=== PATIENT | male | born 1940 | race African-American/Black ===

== ENCOUNTER 2020-01-21 14:24 | Inpatient (IN) ==
[2020-01-21 15:43] LABS: Basophils % 0.5 % (0.0-0.8); Eosinophils # 0.2 10*3/uL (0.0-0.87); Eosinophils % 4.1 % (0.00-10.9); Hematocrit 32.5 VOL% (42.0-52.0); Hemoglobin 9.1 GM/DL (14.0-18.0); Immature Granulocytes % 0.5 %; Immature Granulocytes Absolute 0.03 #; Lymphocytes # 1.6 10*3/uL (1.4-4.0); Lymphocytes % 26.8 % (21.2-54.2); Mean Corpuscular Volume 75.8 FL (87-102); Mean Platelet Volume 9.7 FL (9.6-12.0); Monocytes % 7.5 % (1.7-12.7); Neutrophils % 60.6 % (38.7-73.9); Platelet Count 240 T/CUMM (130-400); Red Blood Count 4.29 MC/CUMM (3.8-5.5); Red Cell Distribution Width 15.5 % (9.3-17.3); White Blood Count 5.9 T/CUMM (4-12)
[2020-01-21 15:45] LABS: Apearance,Urine CLOUDY (Clear); Bacteria,Urine Many /HPF (Few); Bilirubin,Urine Negative (Negative); Blood, Urine Small mg/dL (Negative); Glucose,Urine (UA) 50 mg/dL (Negative); Ketones,Urine Negative (Negative); Mucus,Urine Occasional /LPF (Occasional); Nitrite,Urine Negative (Negative); Protein,Urine 30 MG/DL; RBC,Urine 17 /HPF (0-4); Urine Color Yellow (Yellow); Urine Specific Gravity 1.008 (1.001-1.035); Urine Urobilinogen < 2.0 EU/DL (0.2-1.0); WBC,Urine 355 /HPF (0-6)
[2020-01-21 16:04] LABS: Alanine Aminotransferase 13 U/L (16-61); Albumin 2.6 G/DL (3.4-5.0); Alkaline Phosphatase 165 U/L (45-117); Aspartate Amino Transferase 10 U/L (0-37); Bilirubin,Total < 0.39 MG/DL (0.2-1.0); Blood Urea Nitrogen 33 MG/DL (7-18); Calcium 9.1 MG/DL (8.5-10.1); Estimated Glom Filtration Rate 52 ML/MIN; Glucose 222 MG/DL (74-106); Osmolality,Calculated 286.8 MOS/KG (273-304); Total Protein 7.4 G/DL (6.4-8.3)
[2020-01-21] MEDS ORDERED: GLUCAGON 1 MG VIAL IM PRN (18:04)
[2020-01-21] MEDS ORDERED: DEXTROSE 10% 250 ML BAG IV PRN (18:04)
[2020-01-21] MEDS ORDERED: ONDANSETRON 4 MG/2 ML VIAL IV PRN (18:14)
[2020-01-21] MEDS ORDERED: ACETAMINOPHEN 325 MG TABLET PO PRN (18:14)
[2020-01-21] MEDS ORDERED: FUROSEMIDE 40 MG/4 ML VIAL IV STA (18:38)
[2020-01-21 18:39] LABS: Hypochromasia Slight; Microcytosis 1+; Platelet Estimate Normal
[2020-01-21 18:40] LABS: Anisocytosis 1+; Polychromasia Slight
[2020-01-21] MEDS ORDERED: cefTRIAXone 1,000 MG in SYRINGE 1 EACH IV SCH (21:00)
[2020-01-21] MEDS: ENOXAPARIN 40 MG/0.4 ML SYRINGE SUBCUT SCH (21:50)
[2020-01-21] MEDS: INSULIN LISPRO 100 UNIT/ML SUBCUT SCH (22:08)
[2020-01-22 06:30] LABS: Basophils % 0.5 % (0.0-0.8); Eosinophils # 0.2 10*3/uL (0.0-0.87); Eosinophils % 3.6 % (0.00-10.9); Hematocrit 29.9 VOL% (42.0-52.0); Hemoglobin 8.5 GM/DL (14.0-18.0); Immature Granulocytes % 0.3 %; Immature Granulocytes Absolute 0.02 #; Lymphocytes # 1.8 10*3/uL (1.4-4.0); Lymphocytes % 28.6 % (21.2-54.2); Mean Corpuscular HGB Conc 28.4 GM/DL (32-36); Mean Corpuscular Volume 74.8 FL (87-102); Mean Platelet Volume 10.9 FL (9.6-12.0); Monocytes % 7.9 % (1.7-12.7); Neutrophils % 59.1 % (38.7-73.9); Platelet Count 249 T/CUMM (130-400); Red Cell Distribution Width 15.2 % (9.3-17.3); White Blood Count 6.3 T/CUMM (4-12)
[2020-01-22 06:35] LABS: Calcium 9.4 MG/DL (8.5-10.1); Osmolality,Calculated 289.5 MOS/KG (273-304); Thyroid Stimulating Hormone 0.782 uIU/ml (0.358-3.74)
[2020-01-22 06:38] LABS: Hypochromasia 1+; Microcytosis 1+
[2020-01-22 06:39] LABS: Ovalocytes Slight; Platelet Estimate Normal; Polychromasia Slight; Tear Drop Cells Slight
[2020-01-22] MEDS: INSULIN LISPRO 100 UNIT/ML SUBCUT SCH ×3 (09:40→17:20)
[2020-01-22] MEDS: FUROSEMIDE 40 MG/4 ML VIAL IV SCH ×2 (09:41→17:20)
[2020-01-22] MEDS: PANTOPRAZOLE 40 MG TABLET PO SCH (09:41)
[2020-01-22] MEDS: PIPERACILLIN/TAZOBACTAM 3,375 MG in SODIUM CHLORIDE 0.9% 100 ML IV SCH (10:24)
[2020-01-22] MEDS ORDERED: ALUMINUM/MAGNES/SIMETH MAX STR 30 ML UDCUP PO PRN (13:21)
[2020-01-22] MEDS: METOPROLOL TARTRATE 25 MG TABLET PO SCH (17:20)
[2020-01-22] MEDS: OXYBUTYNIN 5 MG TABLET PO SCH (17:20)
[2020-01-22] MEDS: GABAPENTIN 300 MG CAPSULE PO SCH (17:21)
[2020-01-22] MEDS ORDERED: INSULIN GLARGINE 100 UNIT/ML SUBCUT SCH (21:00)
[2020-01-23] MEDS: ENOXAPARIN 40 MG/0.4 ML SYRINGE SUBCUT SCH ×2 (00:33→22:42)
[2020-01-23] MEDS: INSULIN LISPRO 100 UNIT/ML SUBCUT SCH ×5 (00:33→23:08)
[2020-01-23] MEDS: PIPERACILLIN/TAZOBACTAM 3,375 MG in SODIUM CHLORIDE 0.9% 100 ML IV SCH ×3 (00:34→22:42)
[2020-01-23] MEDS: ATORVASTATIN 10 MG TABLET PO SCH ×2 (00:34→22:42)
[2020-01-23] MEDS ORDERED: NON-FORMULARY MEDICATION (Omeprazole 20 MG) PO SCH (06:00)
[2020-01-23 06:36] LABS: Basophils % 0.3 % (0.0-0.8); Eosinophils # 0.3 10*3/uL (0.0-0.87); Eosinophils % 4.8 % (0.00-10.9); Hematocrit 29.5 VOL% (42.0-52.0); Hemoglobin 8.5 GM/DL (14.0-18.0); Immature Granulocytes % 0.3 %; Immature Granulocytes Absolute 0.02 #; Lymphocytes % 33.7 % (21.2-54.2); Mean Corpuscular HGB Conc 28.8 GM/DL (32-36); Monocytes % 8.5 % (1.7-12.7); Neutrophils % 52.4 % (38.7-73.9); Platelet Count 254 T/CUMM (130-400); Red Blood Count 4.04 MC/CUMM (3.8-5.5); Red Cell Distribution Width 15.2 % (9.3-17.3); White Blood Count 5.9 T/CUMM (4-12)
[2020-01-23 06:49] LABS: Calcium 9.3 MG/DL (8.5-10.1); Osmolality,Calculated 286.5 MOS/KG (273-304)
[2020-01-23 07:01] LABS: Platelet Estimate Normal
[2020-01-23 07:02] LABS: Anisocytosis Slight
[2020-01-23] MEDS: PANTOPRAZOLE 40 MG TABLET PO SCH (08:12)
[2020-01-23] MEDS: METOPROLOL TARTRATE 25 MG TABLET PO SCH ×2 (08:12→17:19)
[2020-01-23] MEDS: OXYBUTYNIN 5 MG TABLET PO SCH ×2 (08:12→17:19)
[2020-01-23] MEDS: GABAPENTIN 300 MG CAPSULE PO SCH ×3 (08:12→17:19)
[2020-01-23] MEDS: FUROSEMIDE 40 MG/4 ML VIAL IV SCH (08:15)
[2020-01-23] MEDS: POTASSIUM CHLORIDE 20 MEQ TABLET PO SCH (08:17)
[2020-01-23] MEDS: MULTIVITAMIN (CENTRUM) TABLET PO SCH (08:17)
[2020-01-23] MEDS: ASCORBIC ACID 500 MG TABLET PO SCH (08:19)
[2020-01-23] MEDS ORDERED: [UNRECOGNIZED DRUG - OTHER] PO SCH (09:00)
[2020-01-23] MEDS: TAMSULOSIN 0.4 MG CAPSULE PO SCH (12:07)
[2020-01-23] MEDS ORDERED: VANCOMYCIN INJ 1,000 MG in SODIUM CHLORIDE 0.9% 250 ML IV ONE (15:57)
[2020-01-23] MEDS: FUROSEMIDE 20 MG/2 ML VIAL IV SCH (17:18)
[2020-01-23] MEDS: INSULIN GLARGINE 100 UNIT/ML SUBCUT SCH (23:08)
[2020-01-24] MEDS: INSULIN LISPRO 100 UNIT/ML SUBCUT SCH ×4 (07:51→22:32)
[2020-01-24] MEDS: GABAPENTIN 300 MG CAPSULE PO SCH ×3 (08:20→16:25)
[2020-01-24] MEDS: PANTOPRAZOLE 40 MG TABLET PO SCH (08:20)
[2020-01-24] MEDS: FUROSEMIDE 20 MG/2 ML VIAL IV SCH ×2 (08:20→16:24)
[2020-01-24] MEDS: POTASSIUM CHLORIDE 20 MEQ TABLET PO SCH (08:20)
[2020-01-24] MEDS: METOPROLOL TARTRATE 25 MG TABLET PO SCH ×2 (08:20→16:25)
[2020-01-24] MEDS: OXYBUTYNIN 5 MG TABLET PO SCH ×2 (08:20→16:25)
[2020-01-24] MEDS: MULTIVITAMIN (CENTRUM) TABLET PO SCH (08:20)
[2020-01-24] MEDS: ASCORBIC ACID 500 MG TABLET PO SCH (08:20)
[2020-01-24] MEDS ORDERED: SKIN HEALING OINT (AQUAPHOR) 50 GM TUBE TOP PRN (10:44)
[2020-01-24] MEDS: PIPERACILLIN/TAZOBACTAM 3,375 MG in SODIUM CHLORIDE 0.9% 100 ML IV SCH ×2 (11:18→22:06)
[2020-01-24] MEDS: TAMSULOSIN 0.4 MG CAPSULE PO SCH (13:36)
[2020-01-24] MEDS: ATORVASTATIN 10 MG TABLET PO SCH (22:06)
[2020-01-24] MEDS: ENOXAPARIN 40 MG/0.4 ML SYRINGE SUBCUT SCH (22:06)
[2020-01-24] MEDS: INSULIN GLARGINE 100 UNIT/ML SUBCUT SCH (22:32)
[2020-01-25 04:59] LABS: Basophils % 0.4 % (0.0-0.8); Eosinophils # 0.2 10*3/uL (0.0-0.87); Eosinophils % 3.5 % (0.00-10.9); Hematocrit 31.4 VOL% (42.0-52.0); Immature Granulocytes % 0.4 %; Immature Granulocytes Absolute 0.03 #; Lymphocytes # 1.8 10*3/uL (1.4-4.0); Mean Corpuscular Volume 75.1 FL (87-102); Mean Platelet Volume 10.8 FL (9.6-12.0); Monocytes % 6.6 % (1.7-12.7); Neutrophils % 62.1 % (38.7-73.9); Platelet Count 253 T/CUMM (130-400); Red Blood Count 4.18 MC/CUMM (3.8-5.5); Red Cell Distribution Width 15.6 % (9.3-17.3); White Blood Count 6.8 T/CUMM (4-12)
[2020-01-25 05:15] LABS: Calcium 9.2 MG/DL (8.5-10.1); Osmolality,Calculated 291.1 MOS/KG (273-304)
[2020-01-25 05:42] LABS: Hemoglobin 8.9 GM/DL (14.0-18.0)
[2020-01-25 05:46] LABS: Hypochromasia 1+; Microcytosis Slight; Platelet Estimate Adequate
[2020-01-25] MEDS: INSULIN LISPRO 100 UNIT/ML SUBCUT SCH ×2 (08:00→12:33)
[2020-01-25] MEDS: ASCORBIC ACID 500 MG TABLET PO SCH (09:38)
[2020-01-25] MEDS: OXYBUTYNIN 5 MG TABLET PO SCH ×2 (09:38→16:32)
[2020-01-25] MEDS: FUROSEMIDE 20 MG/2 ML VIAL IV SCH ×2 (09:38→16:33)
[2020-01-25] MEDS: PANTOPRAZOLE 40 MG TABLET PO SCH (09:38)
[2020-01-25] MEDS: METOPROLOL TARTRATE 25 MG TABLET PO SCH ×2 (09:39→16:32)
[2020-01-25] MEDS: POTASSIUM CHLORIDE 20 MEQ TABLET PO SCH (09:39)
[2020-01-25] MEDS: MULTIVITAMIN (CENTRUM) TABLET PO SCH (09:39)
[2020-01-25] MEDS: GABAPENTIN 300 MG CAPSULE PO SCH ×2 (09:39→12:33)
[2020-01-25] MEDS: PIPERACILLIN/TAZOBACTAM 3,375 MG in SODIUM CHLORIDE 0.9% 100 ML IV SCH (09:39)
[2020-01-25] MEDS ORDERED: VANCOMYCIN INJ 2,000 MG in SODIUM CHLORIDE 0.9% 500 ML IV SCH (10:00)
[2020-01-25] MEDS ORDERED: ERTAPENEM 1,000 MG in SODIUM CHLORIDE 0.9% 100 ML IV SCH (10:00)
[2020-01-25] MEDS: TAMSULOSIN 0.4 MG CAPSULE PO SCH (12:33)
[2020-01-25 14:41] VITALS: BP 149/71
== END 2020-01-25 17:07 | DRG 690 ==
LOC: EDBD → EDSEX → EDUNIT# → N.ED 14:24 → N.EDINP 14:24 → N.5E 19:59
PROVIDERS: ADMIT Internal Medicine; ATTEND Internal Medicine

== ENCOUNTER 2020-02-03 21:27 | Inpatient (IN) ==
[2020-02-03] MEDS ORDERED: PIPERACILLIN/TAZOBACTAM 3,375 MG in SODIUM CHLORIDE 0.9% 100 ML IV STA (22:12)
[2020-02-03] MEDS ORDERED: PANTOPRAZOLE 40 MG VIAL IV STA (22:12)
[2020-02-03] MEDS ORDERED: CLINDAMYCIN INJ 900 MG in PREMIX 1 EACH IV STA (22:12)
[2020-02-03 22:32] LABS: ABG HCO3 18.7 MMOL/L (20-26); ABG Oxygen Saturation 99.6 % (95-100)
[2020-02-03 22:35] LABS: ABG PCO2 83.9 MM HG (35-48)
[2020-02-03] MEDS ORDERED: SODIUM BICARBONATE 50 MEQ/50 ML VIAL IV STA (22:38)
[2020-02-03 22:46] LABS: PT Patient Result 10.6 SECS (9.6-12.2)
[2020-02-03] MEDS ORDERED: ETOMIDATE 20 MG/10 ML VIAL IV ONE (22:51)
[2020-02-03] MEDS ORDERED: VECURONIUM 10 MG VIAL IV ONE (22:51)
[2020-02-03 22:55] LABS: Basophils % 0.1 % (0.0-0.8); Eosinophils % 0.2 % (0.00-10.9); Hemoglobin 9.6 GM/DL (14.0-18.0); Immature Granulocytes % 0.9 %; Lymphocytes # 0.5 10*3/uL (1.4-4.0); Lymphocytes % 4.6 % (21.2-54.2); Mean Corpuscular HGB Conc 25.9 GM/DL (32-36); Mean Corpuscular Volume 81.3 FL (87-102); Mean Platelet Volume 11.6 FL (9.6-12.0); Monocytes % 4.9 % (1.7-12.7); Neutrophils % 89.3 % (38.7-73.9); Platelet Count 258 T/CUMM (130-400); Red Blood Count 4.55 MC/CUMM (3.8-5.5); Red Cell Distribution Width 15.2 % (9.3-17.3); White Blood Count 11.2 T/CUMM (4-12)
[2020-02-03 22:59] LABS: Anisocytosis 1+; Band Neutrophils 4 % (0-10); Hypochromasia 1+; Lymphocytes 4 % (20-55); Platelet Estimate Adequate; Polychromasia Few; Segmented Neutrophils 88 % (50-85); Target Cells Few; Total Cells Counted 100
[2020-02-03 23:10] LABS: Alanine Aminotransferase 13 U/L (16-61); Albumin 2.5 G/DL (3.4-5.0); Alkaline Phosphatase 162 U/L (45-117); Aspartate Amino Transferase 16 U/L (0-37); Bilirubin,Total < 0.39 MG/DL (0.2-1.0); Blood Urea Nitrogen 62 MG/DL (7-18); Calcium 8.7 MG/DL (8.5-10.1); Estimated Glom Filtration Rate 26 ML/MIN; Glucose 260 MG/DL (74-106); Osmolality,Calculated 303.5 MOS/KG (273-304); Total Protein 7.4 G/DL (6.4-8.3)
[2020-02-03] MEDS ORDERED: GLUCAGON 1 MG VIAL IM PRN (23:25)
[2020-02-03] MEDS ORDERED: ONDANSETRON 4 MG/2 ML VIAL IV PRN (23:25)
[2020-02-03] MEDS ORDERED: DEXTROSE 50% 25 GM/50 ML SYRINGE IV PRN (23:25)
[2020-02-03] MEDS ORDERED: ALBUTEROL 2.5 MG/3 ML NEB RESP TX PRN (23:25)
[2020-02-03 23:28] LABS: Apearance,Urine CLOUDY (Clear); Bacteria,Urine Many /HPF (Few); Bilirubin,Urine Negative (Negative); Blood, Urine Moderate mg/dL (Negative); Glucose,Urine (UA) Negative (Negative); Ketones,Urine Negative (Negative); Nitrite,Urine Positive (Negative); Protein,Urine 100 MG/DL; RBC,Urine 11 /HPF (0-4); Renal Epithelial Cells,Urine Occasional /HPF (<1); Squamous Epithelial Cell,Urine Occasional /HPF (0-10); Urine Specific Gravity 1.016 (1.001-1.035); Urine Urobilinogen < 2.0 EU/DL (0.2-1.0); WBC,Urine 333 /HPF (0-6)
[2020-02-03 23:33] LABS: Urine Color Orange (Yellow)
[2020-02-03 23:55] LABS: Barbiturates Screen,Urine Negative (Negative); Benzodiazepines Screen,Urine Negative (Negative); Cannabinoid Screen,Urine Negative (Negative); Opiate Screen,Urine Negative (Negative); Phencyclidine Screen,Urine Negative (Negative)
[2020-02-04] MEDS: ALBUTEROL/IPRATROPIUM 3 ML NEB RESP TX SCH ×4 (00:39→19:43)
[2020-02-04] MEDS ORDERED: SODIUM BICARB INJ 50 MEQ, DEXTROSE 50% 25 GM, INSULIN REGULAR 10 UNIT in SODIUM CHLORID... IV ONE (01:30)
[2020-02-04] MEDS: PANTOPRAZOLE 40 MG VIAL IV SCH ×2 (02:20→23:47)
[2020-02-04] MEDS: ENOXAPARIN 30 MG/0.3 ML SYRINGE SUBCUT SCH ×2 (02:21→23:47)
[2020-02-04] MEDS: LEVOFLOXACIN INJ 750 MG in PREMIX 1 EACH IV SCH (02:32)
[2020-02-04] MEDS: INSULIN REGULAR 100 UNIT/ML SUBCUT SCH ×5 (02:33→22:01)
[2020-02-04 07:24] LABS: ABG Base Excess 1.4 MMOL/L (-2.5-2.5); ABG HCO3 25.7 MMOL/L (20-26); ABG Oxygen Saturation 99.7 % (95-100); ABG PCO2 36.6 MM HG (35-48); ABG PH 7.447 (7.35-7.45); ABG TCO2 23.3 MMOL/L (23-27); Allen Test Positive; Pt O2 Delivery Device Ventilator
[2020-02-04 07:37] LABS: Basophils % 0.1 % (0.0-0.8); Eosinophils % 0.5 % (0.00-10.9); Hematocrit 29.3 VOL% (42.0-52.0); Hemoglobin 8.4 GM/DL (14.0-18.0); Immature Granulocytes % 0.7 %; Immature Granulocytes Absolute 0.05 #; Lymphocytes # 0.9 10*3/uL (1.4-4.0); Lymphocytes % 11.2 % (21.2-54.2); Mean Corpuscular HGB Conc 28.7 GM/DL (32-36); Mean Corpuscular Volume 75.7 FL (87-102); Mean Platelet Volume 11.6 FL (9.6-12.0); Monocytes % 8.4 % (1.7-12.7); Neutrophils % 79.1 % (38.7-73.9); Platelet Count 227 T/CUMM (130-400); Red Blood Count 3.87 MC/CUMM (3.8-5.5); Red Cell Distribution Width 15.4 % (9.3-17.3); White Blood Count 7.6 T/CUMM (4-12)
[2020-02-04 07:39] LABS: Albumin 2.2 G/DL (3.4-5.0); Bilirubin,Total 0.4 MG/DL (0.2-1.0); Calcium 8.8 MG/DL (8.5-10.1); Osmolality,Calculated 305.4 MOS/KG (273-304); Total Protein 6.4 G/DL (6.4-8.3)
[2020-02-04 07:46] LABS: Hypochromasia 1+; Platelet Estimate Adequate
[2020-02-04] MEDS: PIPERACILLIN/TAZOBACTAM 3,375 MG in SODIUM CHLORIDE 0.9% 100 ML IV SCH ×3 (09:12→23:51)
[2020-02-05] MEDS: ALBUTEROL/IPRATROPIUM 3 ML NEB RESP TX SCH ×4 (00:41→19:40)
[2020-02-05 04:17] LABS: ABG Base Excess -0.2 MMOL/L (-2.5-2.5); ABG HCO3 24.3 MMOL/L (20-26); ABG Oxygen Saturation 97.7 % (95-100); ABG PCO2 38.5 MM HG (35-48); ABG PH 7.408 (7.35-7.45); ABG PO2 96.1 MM HG (80-95); ABG TCO2 22.4 MMOL/L (23-27); Allen Test Positive; Pt O2 Delivery Device Ventilator
[2020-02-05] MEDS: INSULIN REGULAR 100 UNIT/ML SUBCUT SCH ×4 (09:45→20:58)
[2020-02-05 10:13] LABS: ABG PCO2 51.3 MM HG (35-48); ABG PH 7.308 (7.35-7.45); Allen Test Positive; Pt O2 Delivery Device Ventilator
[2020-02-05 10:14] LABS: ABG HCO3 23.6 MMOL/L (20-26); ABG Oxygen Saturation 97.7 % (95-100); ABG TCO2 23.9 MMOL/L (23-27)
[2020-02-05] MEDS: PIPERACILLIN/TAZOBACTAM 3,375 MG in SODIUM CHLORIDE 0.9% 100 ML IV SCH ×2 (11:00→19:11)
[2020-02-05] MEDS ORDERED: ZIPRASIDONE 20 MG/1 ML VIAL IM ONE (14:18)
[2020-02-05] MEDS ORDERED: ZIPRASIDONE 20 MG/1 ML VIAL IM PRN (16:20)
[2020-02-05] MEDS: PANTOPRAZOLE 40 MG VIAL IV SCH (23:36)
[2020-02-05] MEDS: ENOXAPARIN 30 MG/0.3 ML SYRINGE SUBCUT SCH (23:36)
[2020-02-05] MEDS: LEVOFLOXACIN INJ 750 MG in PREMIX 1 EACH IV SCH (23:37)
[2020-02-06] MEDS: ALBUTEROL/IPRATROPIUM 3 ML NEB RESP TX SCH ×4 (00:15→19:20)
[2020-02-06] MEDS: PIPERACILLIN/TAZOBACTAM 3,375 MG in SODIUM CHLORIDE 0.9% 100 ML IV SCH ×3 (01:58→17:42)
[2020-02-06 05:00] LABS: ABG Base Excess 0.2 MMOL/L (-2.5-2.5); ABG HCO3 24.6 MMOL/L (20-26); ABG Oxygen Saturation 98.7 % (95-100); ABG PCO2 32.9 MM HG (35-48); ABG PH 7.463 (7.35-7.45); ABG TCO2 21.8 MMOL/L (23-27); Allen Test Positive; Pt O2 Delivery Device Ventilator
[2020-02-06 05:02] LABS: Basophils % 0.5 % (0.0-0.8); Eosinophils # 0.2 10*3/uL (0.0-0.87); Eosinophils % 2.8 % (0.00-10.9); Hematocrit 29.5 VOL% (42.0-52.0); Hemoglobin 8.4 GM/DL (14.0-18.0); Immature Granulocytes % 0.5 %; Immature Granulocytes Absolute 0.04 #; Mean Corpuscular HGB Conc 28.5 GM/DL (32-36); Mean Corpuscular Volume 74.1 FL (87-102); Mean Platelet Volume 10.9 FL (9.6-12.0); Monocytes % 8.6 % (1.7-12.7); Neutrophils % 74.6 % (38.7-73.9); Platelet Count 222 T/CUMM (130-400); Red Blood Count 3.98 MC/CUMM (3.8-5.5); Red Cell Distribution Width 15.9 % (9.3-17.3); White Blood Count 7.4 T/CUMM (4-12)
[2020-02-06 05:31] LABS: Osmolality,Calculated 314.6 MOS/KG (273-304)
[2020-02-06] MEDS: INSULIN REGULAR 100 UNIT/ML SUBCUT SCH ×4 (08:11→21:18)
[2020-02-06] MEDS ORDERED: SODIUM CHLORIDE 0.45% 1,000 ML IV SCH (14:00)
[2020-02-06] MEDS: METOPROLOL TARTRATE 25 MG TABLET PO SCH ×2 (17:40→17:41)
[2020-02-06] MEDS: OXYBUTYNIN 5 MG TABLET PO SCH (17:41)
[2020-02-06] MEDS: GABAPENTIN 300 MG CAPSULE PO SCH (17:42)
[2020-02-06] MEDS: INSULIN GLARGINE 100 UNIT/ML SUBCUT SCH (21:13)
[2020-02-06] MEDS: ENOXAPARIN 30 MG/0.3 ML SYRINGE SUBCUT SCH (21:14)
[2020-02-06] MEDS: ATORVASTATIN 10 MG TABLET PO SCH (21:14)
[2020-02-06] MEDS: PANTOPRAZOLE 40 MG VIAL IV SCH (23:49)
[2020-02-07] MEDS: ALBUTEROL/IPRATROPIUM 3 ML NEB RESP TX SCH ×4 (00:57→19:25)
[2020-02-07] MEDS: PIPERACILLIN/TAZOBACTAM 3,375 MG in SODIUM CHLORIDE 0.9% 100 ML IV SCH (02:32)
[2020-02-07 05:35] LABS: Calcium 9.1 MG/DL (8.5-10.1); Osmolality,Calculated 312.4 MOS/KG (273-304)
[2020-02-07 06:04] LABS: Basophils % 0.4 % (0.0-0.8); Eosinophils # 0.2 10*3/uL (0.0-0.87); Eosinophils % 2.7 % (0.00-10.9); Hematocrit 33.7 VOL% (42.0-52.0); Hemoglobin 9.3 GM/DL (14.0-18.0); Immature Granulocytes % 0.5 %; Immature Granulocytes Absolute 0.04 #; Lymphocytes # 1.3 10*3/uL (1.4-4.0); Lymphocytes % 17.5 % (21.2-54.2); Mean Corpuscular HGB Conc 27.6 GM/DL (32-36); Mean Corpuscular Volume 76.2 FL (87-102); Mean Platelet Volume 11.8 FL (9.6-12.0); Monocytes % 11.1 % (1.7-12.7); Neutrophils % 67.8 % (38.7-73.9); Platelet Count 272 T/CUMM (130-400); Red Blood Count 4.42 MC/CUMM (3.8-5.5); Red Cell Distribution Width 16.2 % (9.3-17.3)
[2020-02-07 06:07] LABS: White Blood Count 7.4 T/CUMM (4-12)
[2020-02-07 06:20] LABS: Anisocytosis 1+; Hypochromasia 1+; Microcytosis 1+; Platelet Estimate Adequate
[2020-02-07] MEDS: METOPROLOL TARTRATE 25 MG TABLET PO SCH ×2 (09:01→17:02)
[2020-02-07] MEDS: OXYBUTYNIN 5 MG TABLET PO SCH ×2 (09:01→17:02)
[2020-02-07] MEDS: INSULIN REGULAR 100 UNIT/ML SUBCUT SCH ×4 (09:01→20:54)
[2020-02-07] MEDS: GABAPENTIN 300 MG CAPSULE PO SCH ×3 (09:01→17:02)
[2020-02-07] MEDS ORDERED: guaiFENesin/DM ER 600-30 MG TABLET PO PRN (09:25)
[2020-02-07] MEDS: PIPERACILLIN/TAZOBACTAM 2,250 MG in SODIUM CHLORIDE 0.9% 100 ML IV SCH ×2 (12:40→20:52)
[2020-02-07 13:13] LABS: Apearance,Urine Slightly Hazy (Clear); Bilirubin,Urine Negative (Negative); Blood, Urine Small mg/dL (Negative); Glucose,Urine (UA) Negative (Negative); Ketones,Urine Negative (Negative); Nitrite,Urine Negative (Negative); Protein,Urine 100 MG/DL; RBC,Urine 4 /HPF (0-4); Urine Color Yellow (Yellow); Urine Specific Gravity 1.017 (1.001-1.035); Urine Urobilinogen < 2.0 EU/DL (0.2-1.0); WBC,Urine 87 /HPF (0-6)
[2020-02-07] MEDS: SODIUM CHLORIDE 0.45% 1,000 ML IV SCH (14:00)
[2020-02-07] MEDS: INSULIN GLARGINE 100 UNIT/ML SUBCUT SCH (20:54)
[2020-02-07] MEDS: ENOXAPARIN 30 MG/0.3 ML SYRINGE SUBCUT SCH (20:54)
[2020-02-07] MEDS: ATORVASTATIN 10 MG TABLET PO SCH (20:54)
[2020-02-08] MEDS ORDERED: VANCOMYCIN INJ 2,500 MG in SODIUM CHLORIDE 0.9% 500 ML IV ONE
[2020-02-08] MEDS: ALBUTEROL/IPRATROPIUM 3 ML NEB RESP TX SCH ×4 (02:02→18:30)
[2020-02-08] MEDS: SODIUM CHLORIDE 0.45% 1,000 ML IV SCH ×2 (04:34→19:40)
[2020-02-08] MEDS: PIPERACILLIN/TAZOBACTAM 2,250 MG in SODIUM CHLORIDE 0.9% 100 ML IV SCH ×2 (04:35→12:20)
[2020-02-08 05:47] LABS: Basophils # 0.1 10*3/uL (0.0-0.2); Basophils % 0.6 % (0.0-0.8); Eosinophils # 0.1 10*3/uL (0.0-0.87); Eosinophils % 1.6 % (0.00-10.9); Immature Granulocytes % 0.2 %; Immature Granulocytes Absolute 0.02 #; Lymphocytes # 1.7 10*3/uL (1.4-4.0); Lymphocytes % 20.6 % (21.2-54.2); Mean Corpuscular HGB Conc 26.9 GM/DL (32-36); Mean Platelet Volume 11.8 FL (9.6-12.0); Monocytes % 12.3 % (1.7-12.7); Neutrophils % 64.7 % (38.7-73.9); Platelet Count 304 T/CUMM (130-400); Red Blood Count 4.39 MC/CUMM (3.8-5.5); White Blood Count 8.3 T/CUMM (4-12)
[2020-02-08 06:04] LABS: Calcium 9.5 MG/DL (8.5-10.1); Osmolality,Calculated 312.6 MOS/KG (273-304)
[2020-02-08 06:08] LABS: % Iron Saturation 17.1 % (18-50); Ferritin 224.9 ng/ml (26-388)
[2020-02-08 06:20] LABS: Hematocrit 33.5 VOL% (42.0-52.0); Hemoglobin 9.2 GM/DL (14.0-18.0)
[2020-02-08 06:26] LABS: Hypochromasia 1+; Microcytosis Slight; Ovalocytes Slight; Platelet Estimate Adequate
[2020-02-08] MEDS: INSULIN REGULAR 100 UNIT/ML SUBCUT SCH ×4 (08:59→23:30)
[2020-02-08] MEDS: METOPROLOL TARTRATE 25 MG TABLET PO SCH ×2 (09:01→18:13)
[2020-02-08] MEDS: GABAPENTIN 300 MG CAPSULE PO SCH ×3 (09:01→18:13)
[2020-02-08] MEDS: OXYBUTYNIN 5 MG TABLET PO SCH ×2 (09:01→18:12)
[2020-02-08] MEDS ORDERED: FUROSEMIDE 40 MG/4 ML VIAL IV ONE (18:54)
[2020-02-08] MEDS ORDERED: ETOMIDATE 20 MG/10 ML VIAL IV ONE ×3 (21:04→21:19)
[2020-02-08] MEDS ORDERED: VECURONIUM 10 MG VIAL IV ONE ×2 (21:04→21:20)
[2020-02-08] MEDS ORDERED: SUCCINYLCHOLINE 200 MG/10 ML VIAL ONE (21:05)
[2020-02-08] MEDS ORDERED: ROCURONIUM 100 MG/10 ML VIAL IV ONE ×2 (21:05→21:11)
[2020-02-08] MEDS ORDERED: ATROPINE 1 MG/10 ML SYRINGE ONE (21:14)
[2020-02-08] MEDS ORDERED: SODIUM CHLORIDE 0.9% 500 ML IV ONE (22:09)
[2020-02-08] MEDS ORDERED: VANCOMYCIN INJ 2,000 MG in SODIUM CHLORIDE 0.9% 500 ML IV PRN (22:20)
[2020-02-08 23:20] LABS: ABG Base Excess -7.3 MMOL/L (-2.5-2.5); ABG HCO3 18.5 MMOL/L (20-26); ABG Oxygen Saturation 99.2 % (95-100); ABG PCO2 47.9 MM HG (35-48); ABG PH 7.234 (7.35-7.45); ABG TCO2 18.8 MMOL/L (23-27); Allen Test Positive; Pt O2 Delivery Device Ventilator
[2020-02-08] MEDS: INSULIN GLARGINE 100 UNIT/ML SUBCUT SCH (23:30)
[2020-02-08] MEDS: ATORVASTATIN 10 MG TABLET PO SCH (23:31)
[2020-02-08] MEDS ORDERED: SODIUM BICARBONATE 50 MEQ/50 ML VIAL IV ONE (23:37)
[2020-02-08] MEDS: ENOXAPARIN 30 MG/0.3 ML SYRINGE SUBCUT SCH (23:47)
[2020-02-09] MEDS ORDERED: VANCOMYCIN INJ 2,500 MG in SODIUM CHLORIDE 0.9% 500 ML IV ONE
[2020-02-09] MEDS: PIPERACILLIN/TAZOBACTAM 2,250 MG in SODIUM CHLORIDE 0.9% 100 ML IV SCH ×4 (00:13→23:37)
[2020-02-09 00:22] LABS: Albumin 2.2 G/DL (3.4-5.0); Bilirubin,Total 0.8 MG/DL (0.2-1.0); Calcium 8.9 MG/DL (8.5-10.1); Total Protein 7.1 G/DL (6.4-8.3)
[2020-02-09] MEDS ORDERED: ATROPINE 1 MG/10 ML SYRINGE IV ONE (01:10)
[2020-02-09] MEDS ORDERED: EPINEPHrine 1 MG/10 ML SYRINGE IV ONE (01:11)
[2020-02-09] MEDS ORDERED: propofoL 200 MG/20 ML VIAL IV ONE (01:20)
[2020-02-09] MEDS ORDERED: NOREPINEPHRINE 4 MG/4 ML VIAL IV ONE (01:32)
[2020-02-09] MEDS: NOREPINEPHRINE 8 MG in SODIUM CHLORIDE 0.9% 242 ML IV PRN ×3 (01:36→22:57)
[2020-02-09] MEDS ORDERED: PHENYLEPHRINE DRIP 40 MG/250 ML PREMIX IV ONE (01:43)
[2020-02-09] MEDS ORDERED: PHENYLEPHRINE DRIP 40 MG/250 ML PREMIX IV PRN (02:00)
[2020-02-09] MEDS: ALBUTEROL/IPRATROPIUM 3 ML NEB RESP TX SCH ×2 (02:46→09:20)
[2020-02-09 05:33] LABS: Albumin 2.1 G/DL (3.4-5.0); Bilirubin,Total 1.1 MG/DL (0.2-1.0); Calcium 8.4 MG/DL (8.5-10.1); Osmolality,Calculated 324.4 MOS/KG (273-304); Total Protein 6.8 G/DL (6.4-8.3)
[2020-02-09 05:51] LABS: Basophils % 0.2 % (0.0-0.8); Eosinophils % 0.1 % (0.00-10.9); Hemoglobin 8.9 GM/DL (14.0-18.0); Immature Granulocytes % 0.5 %; Immature Granulocytes Absolute 0.06 #; Lymphocytes # 0.5 10*3/uL (1.4-4.0); Lymphocytes % 3.6 % (21.2-54.2); Mean Corpuscular Volume 78.9 FL (87-102); Mean Platelet Volume 12.4 FL (9.6-12.0); Monocytes % 6.1 % (1.7-12.7); NRBC # 0.02 10*3/uL; Neutrophils % 89.5 % (38.7-73.9); Platelet Count 251 T/CUMM (130-400); Red Blood Count 4.18 MC/CUMM (3.8-5.5); Red Cell Distribution Width 15.9 % (9.3-17.3); White Blood Count 12.8 T/CUMM (4-12)
[2020-02-09 06:01] LABS: ABG Base Excess -8.2 MMOL/L (-2.5-2.5); ABG HCO3 17.7 MMOL/L (20-26); ABG Oxygen Saturation 98.9 % (95-100); ABG PCO2 42.5 MM HG (35-48); ABG PH 7.249 (7.35-7.45); ABG TCO2 17.5 MMOL/L (23-27)
[2020-02-09 06:01] LABS: Band Neutrophils 15 % (0-10); Hypochromasia Slight; Lymphocytes 1 % (20-55); Microcytosis Slight; Ovalocytes Slight; Platelet Estimate Adequate; Segmented Neutrophils 78 % (50-85); Total Cells Counted 100
[2020-02-09] MEDS: INSULIN REGULAR 100 UNIT/ML SUBCUT SCH ×3 (07:57→17:46)
[2020-02-09] MEDS: OXYBUTYNIN 5 MG TABLET PO SCH ×2 (09:37→17:23)
[2020-02-09] MEDS: METOPROLOL TARTRATE 25 MG TABLET PO SCH ×2 (09:37→17:23)
[2020-02-09] MEDS: FUROSEMIDE 20 MG/2 ML VIAL IV SCH ×2 (09:37→16:00)
[2020-02-09] MEDS: GABAPENTIN 300 MG CAPSULE PO SCH ×3 (09:37→17:23)
[2020-02-09] MEDS: LINEZOLID INJ 600 MG in PREMIX 1 EACH IV SCH ×2 (10:23→23:36)
[2020-02-09] MEDS: INSULIN GLARGINE 100 UNIT/ML SUBCUT SCH (21:50)
[2020-02-09] MEDS: ENOXAPARIN 30 MG/0.3 ML SYRINGE SUBCUT SCH (21:51)
[2020-02-09] MEDS: ATORVASTATIN 10 MG TABLET PO SCH (21:51)
[2020-02-10] MEDS: INSULIN REGULAR 100 UNIT/ML SUBCUT SCH ×4 (00:43→17:15)
[2020-02-10 06:27] LABS: Calcium 9.4 MG/DL (8.5-10.1); Osmolality,Calculated 321.7 MOS/KG (273-304)
[2020-02-10] MEDS: PIPERACILLIN/TAZOBACTAM 2,250 MG in SODIUM CHLORIDE 0.9% 100 ML IV SCH ×3 (06:37→22:15)
[2020-02-10 06:39] LABS: Basophils # 0.1 10*3/uL (0.0-0.2); Basophils % 0.2 % (0.0-0.8); Eosinophils # 0.2 10*3/uL (0.0-0.87); Eosinophils % 0.7 % (0.00-10.9); Hematocrit 30.6 VOL% (42.0-52.0); Hemoglobin 8.6 GM/DL (14.0-18.0); Immature Granulocytes % 1.9 %; Immature Granulocytes Absolute 0.51 #; Lymphocytes # 1.3 10*3/uL (1.4-4.0); Lymphocytes % 4.8 % (21.2-54.2); Mean Corpuscular HGB Conc 28.1 GM/DL (32-36); Mean Corpuscular Volume 75.9 FL (87-102); Mean Platelet Volume 11.4 FL (9.6-12.0); Monocytes % 5.1 % (1.7-12.7); Neutrophils % 87.3 % (38.7-73.9); Platelet Count 258 T/CUMM (130-400); Red Blood Count 4.03 MC/CUMM (3.8-5.5); Red Cell Distribution Width 15.9 % (9.3-17.3); White Blood Count 26.5 T/CUMM (4-12)
[2020-02-10 07:00] LABS: Band Neutrophils 14 % (0-10); Hypochromasia 1+; Lymphocytes 4 % (20-55); Metamyelocytes 4 %; Microcytosis Slight; Segmented Neutrophils 75 % (50-85); Total Cells Counted 100
[2020-02-10 07:01] LABS: Platelet Estimate Normal
[2020-02-10] MEDS: METOPROLOL TARTRATE 25 MG TABLET PO SCH ×2 (08:03→16:21)
[2020-02-10] MEDS: GABAPENTIN 300 MG CAPSULE PO SCH ×3 (08:03→16:21)
[2020-02-10] MEDS: FUROSEMIDE 20 MG/2 ML VIAL IV SCH ×2 (08:03→15:21)
[2020-02-10] MEDS: OXYBUTYNIN 5 MG TABLET PO SCH ×2 (08:04→16:21)
[2020-02-10 08:30] LABS: ABG HCO3 20.3 MMOL/L (20-26); ABG Oxygen Saturation 98.7 % (95-100); ABG PCO2 45.7 MM HG (35-48); ABG PH 7.282 (7.35-7.45); ABG TCO2 20.2 MMOL/L (23-27)
[2020-02-10] MEDS ORDERED: MAGNESIUM SULF RIDER 2 GM in PREMIX 1 EACH IV ONE (09:22)
[2020-02-10] MEDS: LINEZOLID INJ 600 MG in PREMIX 1 EACH IV SCH ×2 (10:44→22:14)
[2020-02-10] MEDS ORDERED: HYDROXYCHLOROQUINE 200 MG TABLET PO SCH (11:00)
[2020-02-10] MEDS ORDERED: AZITHROMYCIN INJ 500 MG in SODIUM CHLORIDE 0.9% 250 ML IV ONE (11:00)
[2020-02-10] MEDS: NOREPINEPHRINE 8 MG in SODIUM CHLORIDE 0.9% 242 ML IV PRN ×2 (11:10→19:15)
[2020-02-10] MEDS ORDERED: NOREPINEPHRINE 4 MG/4 ML VIAL IV ONE (11:23)
[2020-02-10] MEDS: MICAFUNGIN 100 MG in SODIUM CHLORIDE 0.9% 100 ML IV SCH (17:04)
[2020-02-10] MEDS: ENOXAPARIN 30 MG/0.3 ML SYRINGE SUBCUT SCH (22:00)
[2020-02-10] MEDS: ATORVASTATIN 10 MG TABLET PO SCH (22:00)
[2020-02-10] MEDS: INSULIN GLARGINE 100 UNIT/ML SUBCUT SCH (22:00)
[2020-02-11] MEDS: INSULIN REGULAR 100 UNIT/ML SUBCUT SCH ×5 (01:15→23:04)
[2020-02-11] MEDS: NOREPINEPHRINE 8 MG in SODIUM CHLORIDE 0.9% 242 ML IV PRN ×4 (01:30→22:01)
[2020-02-11 01:31] LABS: ABG Base Excess -6.7 MMOL/L (-2.5-2.5); ABG HCO3 18.9 MMOL/L (20-26); ABG Oxygen Saturation 99.2 % (95-100); ABG PCO2 49.2 MM HG (35-48); ABG PH 7.233 (7.35-7.45); ABG TCO2 19.5 MMOL/L (23-27)
[2020-02-11 01:40] LABS: Basophils # 0.1 10*3/uL (0.0-0.2); Basophils % 0.3 % (0.0-0.8); Eosinophils # 0.3 10*3/uL (0.0-0.87); Eosinophils % 0.9 % (0.00-10.9); Hematocrit 29.9 VOL% (42.0-52.0); Immature Granulocytes % 1.3 %; Lymphocytes # 1.8 10*3/uL (1.4-4.0); Lymphocytes % 5.9 % (21.2-54.2); Mean Corpuscular HGB Conc 27.8 GM/DL (32-36); Mean Corpuscular Volume 76.5 FL (87-102); Mean Platelet Volume 10.3 FL (9.6-12.0); Monocytes % 4.6 % (1.7-12.7); Platelet Count 251 T/CUMM (130-400); Red Blood Count 3.91 MC/CUMM (3.8-5.5); Red Cell Distribution Width 16.1 % (9.3-17.3); White Blood Count 29.8 T/CUMM (4-12)
[2020-02-11 02:04] LABS: Hemoglobin 8.3 GM/DL (14.0-18.0)
[2020-02-11 02:05] LABS: Calcium 9.5 MG/DL (8.5-10.1); Osmolality,Calculated 322.7 MOS/KG (273-304)
[2020-02-11 04:26] LABS: Band Neutrophils 16 % (0-10); Eosinophils 1 % (0-10); Lymphocytes 5 % (20-55); Segmented Neutrophils 73 % (50-85); Total Cells Counted 100
[2020-02-11 04:27] LABS: Anisocytosis 1+; Ovalocytes 1+; Platelet Estimate Normal
[2020-02-11] MEDS: PIPERACILLIN/TAZOBACTAM 2,250 MG in SODIUM CHLORIDE 0.9% 100 ML IV SCH ×3 (06:02→23:01)
[2020-02-11] MEDS: GABAPENTIN 300 MG CAPSULE PO SCH ×3 (09:12→17:12)
[2020-02-11] MEDS: AZITHROMYCIN 250 MG TABLET PER TUBE SCH (09:12)
[2020-02-11] MEDS: METOPROLOL TARTRATE 25 MG TABLET PO SCH ×2 (09:12→17:12)
[2020-02-11] MEDS: PANTOPRAZOLE 40 MG VIAL IV SCH (09:13)
[2020-02-11] MEDS: FUROSEMIDE 20 MG/2 ML VIAL IV SCH ×2 (09:13→15:18)
[2020-02-11] MEDS: OXYBUTYNIN 5 MG TABLET PO SCH ×2 (09:15→17:12)
[2020-02-11] MEDS ORDERED: AZITHROMYCIN INJ 250 MG in SODIUM CHLORIDE 0.9% 250 ML IV SCH (09:30)
[2020-02-11] MEDS: LINEZOLID INJ 600 MG in PREMIX 1 EACH IV SCH ×2 (10:12→23:00)
[2020-02-11] MEDS: HYDROXYCHLOROQUINE 200 MG TABLET PER TUBE SCH ×2 (11:30→23:01)
[2020-02-11] MEDS: MICAFUNGIN 100 MG in SODIUM CHLORIDE 0.9% 100 ML IV SCH (17:12)
[2020-02-11] MEDS: INSULIN GLARGINE 100 UNIT/ML SUBCUT SCH (22:30)
[2020-02-11] MEDS: ATORVASTATIN 10 MG TABLET PO SCH (22:30)
[2020-02-11] MEDS: ENOXAPARIN 30 MG/0.3 ML SYRINGE SUBCUT SCH (22:30)
[2020-02-12 04:15] LABS: ABG Base Excess -6.6 MMOL/L (-2.5-2.5); ABG Oxygen Saturation 98.1 % (95-100); ABG PCO2 44.2 MM HG (35-48); ABG PH 7.267 (7.35-7.45); ABG TCO2 18.8 MMOL/L (23-27)
[2020-02-12 04:44] LABS: Calcium 9.7 MG/DL (8.5-10.1)
[2020-02-12 05:03] LABS: Basophils # 0.1 10*3/uL (0.0-0.2); Basophils % 0.2 % (0.0-0.8); Eosinophils # 0.3 10*3/uL (0.0-0.87); Eosinophils % 0.9 % (0.00-10.9); Hemoglobin 8.3 GM/DL (14.0-18.0); Immature Granulocytes Absolute 0.34 #; Lymphocytes # 1.3 10*3/uL (1.4-4.0); Mean Corpuscular HGB Conc 28.5 GM/DL (32-36); Mean Corpuscular Volume 74.6 FL (87-102); Mean Platelet Volume 11.6 FL (9.6-12.0); Monocytes % 4.3 % (1.7-12.7); NRBC # 0.05 10*3/uL; Neutrophils % 89.6 % (38.7-73.9); Platelet Count 274 T/CUMM (130-400); Red Cell Distribution Width 16.3 % (9.3-17.3); White Blood Count 32.7 T/CUMM (4-12)
[2020-02-12 05:07] LABS: Hematocrit 29.1 VOL% (42.0-52.0)
[2020-02-12 05:16] LABS: Eosinophils 1 % (0-10); Lymphocytes 2 % (20-55); Platelet Estimate Normal; Polychromasia Few; Segmented Neutrophils 94 % (50-85); Total Cells Counted 100
[2020-02-12] MEDS: INSULIN REGULAR 100 UNIT/ML SUBCUT SCH ×3 (06:21→18:44)
[2020-02-12] MEDS: PIPERACILLIN/TAZOBACTAM 2,250 MG in SODIUM CHLORIDE 0.9% 100 ML IV SCH ×3 (06:21→22:03)
[2020-02-12] MEDS: GABAPENTIN 300 MG CAPSULE PO SCH ×3 (08:17→17:25)
[2020-02-12] MEDS: METOPROLOL TARTRATE 25 MG TABLET PO SCH ×2 (08:17→17:25)
[2020-02-12] MEDS: OXYBUTYNIN 5 MG TABLET PO SCH ×2 (08:17→17:25)
[2020-02-12] MEDS: AZITHROMYCIN 250 MG TABLET PER TUBE SCH (08:17)
[2020-02-12] MEDS: FUROSEMIDE 20 MG/2 ML VIAL IV SCH ×2 (08:17→17:25)
[2020-02-12] MEDS: PANTOPRAZOLE 40 MG VIAL IV SCH (08:18)
[2020-02-12] MEDS: NOREPINEPHRINE 8 MG in SODIUM CHLORIDE 0.9% 242 ML IV PRN ×2 (08:44→20:00)
[2020-02-12] MEDS: LINEZOLID INJ 600 MG in PREMIX 1 EACH IV SCH ×2 (11:03→22:03)
[2020-02-12] MEDS: HYDROXYCHLOROQUINE 200 MG TABLET PER TUBE SCH ×2 (12:57→22:02)
[2020-02-12] MEDS: MICAFUNGIN 100 MG in SODIUM CHLORIDE 0.9% 100 ML IV SCH (17:24)
[2020-02-12] MEDS: INSULIN GLARGINE 100 UNIT/ML SUBCUT SCH (22:00)
[2020-02-12] MEDS: ATORVASTATIN 10 MG TABLET PO SCH (22:01)
[2020-02-12] MEDS: ENOXAPARIN 30 MG/0.3 ML SYRINGE SUBCUT SCH (22:01)
[2020-02-13] MEDS: INSULIN REGULAR 100 UNIT/ML SUBCUT SCH ×4 (01:28→17:36)
[2020-02-13 04:50] LABS: ABG Base Excess -5.4 MMOL/L (-2.5-2.5); ABG HCO3 19.9 MMOL/L (20-26); ABG Oxygen Saturation 97.6 % (95-100); ABG PCO2 46.6 MM HG (35-48); ABG TCO2 20.1 MMOL/L (23-27)
[2020-02-13 05:07] LABS: Calcium 9.9 MG/DL (8.5-10.1); Osmolality,Calculated 327.7 MOS/KG (273-304)
[2020-02-13 05:34] LABS: Basophils # 0.1 10*3/uL (0.0-0.2); Basophils % 0.3 % (0.0-0.8); Eosinophils # 0.2 10*3/uL (0.0-0.87); Hemoglobin 7.6 GM/DL (14.0-18.0); Immature Granulocytes Absolute 0.21 #; Lymphocytes # 2.4 10*3/uL (1.4-4.0); Lymphocytes % 11.5 % (21.2-54.2); Mean Corpuscular HGB Conc 29.2 GM/DL (32-36); Mean Corpuscular Volume 72.4 FL (87-102); Mean Platelet Volume 11.5 FL (9.6-12.0); Monocytes % 6.9 % (1.7-12.7); NRBC # 0.05 10*3/uL; Neutrophils % 79.3 % (38.7-73.9); Platelet Count 244 T/CUMM (130-400); Red Blood Count 3.59 MC/CUMM (3.8-5.5); Red Cell Distribution Width 16.2 % (9.3-17.3); White Blood Count 20.7 T/CUMM (4-12)
[2020-02-13 06:27] LABS: Hypochromasia 1+; Ovalocytes Slight; Platelet Estimate Adequate
[2020-02-13] MEDS: PIPERACILLIN/TAZOBACTAM 2,250 MG in SODIUM CHLORIDE 0.9% 100 ML IV SCH ×3 (06:32→23:41)
[2020-02-13] MEDS: NOREPINEPHRINE 8 MG in SODIUM CHLORIDE 0.9% 242 ML IV PRN ×2 (07:27→18:35)
[2020-02-13] MEDS: AZITHROMYCIN 250 MG TABLET PER TUBE SCH (08:18)
[2020-02-13] MEDS: GABAPENTIN 300 MG CAPSULE PO SCH ×3 (08:18→17:07)
[2020-02-13] MEDS: FUROSEMIDE 20 MG/2 ML VIAL IV SCH ×2 (08:19→15:00)
[2020-02-13] MEDS: PANTOPRAZOLE 40 MG VIAL IV SCH (08:19)
[2020-02-13] MEDS: METOPROLOL TARTRATE 25 MG TABLET PO SCH ×2 (08:19→17:07)
[2020-02-13] MEDS: OXYBUTYNIN 5 MG TABLET PO SCH ×2 (08:20→17:07)
[2020-02-13] MEDS: LINEZOLID INJ 600 MG in PREMIX 1 EACH IV SCH ×2 (10:36→22:30)
[2020-02-13] MEDS: HYDROXYCHLOROQUINE 200 MG TABLET PER TUBE SCH ×2 (14:15→22:31)
[2020-02-13] MEDS: MICAFUNGIN 100 MG in SODIUM CHLORIDE 0.9% 100 ML IV SCH (17:08)
[2020-02-13] MEDS: INSULIN GLARGINE 100 UNIT/ML SUBCUT SCH (22:28)
[2020-02-13] MEDS: ENOXAPARIN 30 MG/0.3 ML SYRINGE SUBCUT SCH (22:29)
[2020-02-13] MEDS: ATORVASTATIN 10 MG TABLET PO SCH (22:29)
[2020-02-14] MEDS: INSULIN REGULAR 100 UNIT/ML SUBCUT SCH ×5 (00:38→23:45)
[2020-02-14 04:45] LABS: Basophils # 0.1 10*3/uL (0.0-0.2); Basophils % 0.4 % (0.0-0.8); Eosinophils # 0.2 10*3/uL (0.0-0.87); Eosinophils % 1.4 % (0.00-10.9); Hematocrit 25.2 VOL% (42.0-52.0); Hemoglobin 7.1 GM/DL (14.0-18.0); Immature Granulocytes % 1.4 %; Immature Granulocytes Absolute 0.24 #; Lymphocytes # 2.3 10*3/uL (1.4-4.0); Lymphocytes % 13.8 % (21.2-54.2); Mean Corpuscular HGB Conc 28.2 GM/DL (32-36); Mean Corpuscular Volume 74.1 FL (87-102); Mean Platelet Volume 10.9 FL (9.6-12.0); Monocytes % 8.5 % (1.7-12.7); NRBC # 0.04 10*3/uL; Neutrophils % 74.5 % (38.7-73.9); Platelet Count 219 T/CUMM (130-400); Red Cell Distribution Width 16.4 % (9.3-17.3); White Blood Count 16.7 T/CUMM (4-12)
[2020-02-14] MEDS: NOREPINEPHRINE 8 MG in SODIUM CHLORIDE 0.9% 242 ML IV PRN ×2 (04:49→14:40)
[2020-02-14 04:56] LABS: ABG Base Excess -5.4 MMOL/L (-2.5-2.5); ABG HCO3 19.9 MMOL/L (20-26); ABG PCO2 43.7 MM HG (35-48); ABG PH 7.288 (7.35-7.45); ABG TCO2 19.9 MMOL/L (23-27)
[2020-02-14 05:12] LABS: Calcium 9.9 MG/DL (8.5-10.1)
[2020-02-14 05:18] LABS: Hypochromasia 1+; Platelet Estimate Normal
[2020-02-14 05:19] LABS: Polychromasia Few
[2020-02-14 05:20] LABS: Ovalocytes 1+
[2020-02-14] MEDS: PIPERACILLIN/TAZOBACTAM 2,250 MG in SODIUM CHLORIDE 0.9% 100 ML IV SCH ×2 (06:00→15:55)
[2020-02-14] MEDS: AZITHROMYCIN 250 MG TABLET PER TUBE SCH (09:03)
[2020-02-14] MEDS: GABAPENTIN 300 MG CAPSULE PO SCH ×3 (09:03→17:45)
[2020-02-14] MEDS: OXYBUTYNIN 5 MG TABLET PO SCH ×2 (09:03→17:45)
[2020-02-14] MEDS: METOPROLOL TARTRATE 25 MG TABLET PO SCH (09:03)
[2020-02-14] MEDS: FUROSEMIDE 20 MG/2 ML VIAL IV SCH ×2 (09:03→15:55)
[2020-02-14] MEDS: PANTOPRAZOLE 40 MG VIAL IV SCH (09:04)
[2020-02-14] MEDS ORDERED: EPINEPHrine 1 MG/ML VIAL ONE (09:58)
[2020-02-14 11:13] LABS: Troponin I 0.017 NG/ML (0.00-0.045)
[2020-02-14] MEDS ORDERED: EPINEPHrine 1 MG/10 ML SYRINGE ONE (11:19)
[2020-02-14] MEDS: LINEZOLID INJ 600 MG in PREMIX 1 EACH IV SCH ×2 (11:31→21:57)
[2020-02-14] MEDS: ENOXAPARIN 150 MG/ML SYRINGE SUBCUT SCH (11:31)
[2020-02-14] MEDS: MICAFUNGIN 100 MG in SODIUM CHLORIDE 0.9% 100 ML IV SCH (17:45)
[2020-02-14] MEDS: ATORVASTATIN 10 MG TABLET PO SCH (20:32)
[2020-02-14] MEDS: INSULIN GLARGINE 100 UNIT/ML SUBCUT SCH (20:32)
[2020-02-15 04:13] LABS: Allen Test Positive; Pt O2 Delivery Device Ventilator
[2020-02-15 04:15] LABS: ABG Base Excess -5.5 MMOL/L (-2.5-2.5); ABG HCO3 19.8 MMOL/L (20-26); ABG Oxygen Saturation 99.3 % (95-100); ABG PCO2 41.3 MM HG (35-48); ABG PH 7.303 (7.35-7.45); ABG TCO2 19.2 MMOL/L (23-27)
[2020-02-15 05:25] LABS: Basophils % 0.2 % (0.0-0.8); Eosinophils # 0.1 10*3/uL (0.0-0.87); Hematocrit 22.9 VOL% (42.0-52.0); Hemoglobin 6.5 GM/DL (14.0-18.0); Immature Granulocytes % 1.4 %; Immature Granulocytes Absolute 0.13 #; Mean Corpuscular HGB Conc 28.4 GM/DL (32-36); Mean Corpuscular Volume 73.4 FL (87-102); Mean Platelet Volume 10.5 FL (9.6-12.0); Monocytes % 10.7 % (1.7-12.7); NRBC # 0.04 10*3/uL; Neutrophils % 75.7 % (38.7-73.9); Platelet Count 186 T/CUMM (130-400); Red Blood Count 3.12 MC/CUMM (3.8-5.5); Red Cell Distribution Width 16.5 % (9.3-17.3); White Blood Count 9.4 T/CUMM (4-12)
[2020-02-15] MEDS: INSULIN REGULAR 100 UNIT/ML SUBCUT SCH ×3 (05:29→18:14)
[2020-02-15 05:44] LABS: Calcium 9.6 MG/DL (8.5-10.1); Osmolality,Calculated 329.8 MOS/KG (273-304)
[2020-02-15 05:46] LABS: Hypochromasia 1+; Microcytosis 1+
[2020-02-15 05:47] LABS: Platelet Estimate Adequate
[2020-02-15] MEDS ORDERED: SODIUM CHLORIDE 0.9% 1,000 ML IV PRN (08:50)
[2020-02-15] MEDS: PANTOPRAZOLE 40 MG VIAL IV SCH (09:18)
[2020-02-15] MEDS: OXYBUTYNIN 5 MG TABLET PO SCH ×2 (09:18→17:41)
[2020-02-15] MEDS: FUROSEMIDE 20 MG/2 ML VIAL IV SCH (09:18)
[2020-02-15] MEDS: GABAPENTIN 300 MG CAPSULE PO SCH ×3 (09:18→17:41)
[2020-02-15] MEDS: LINEZOLID INJ 600 MG in PREMIX 1 EACH IV SCH (09:43)
[2020-02-15] MEDS: ENOXAPARIN 150 MG/ML SYRINGE SUBCUT SCH (12:41)
[2020-02-15] MEDS: MICAFUNGIN 100 MG in SODIUM CHLORIDE 0.9% 100 ML IV SCH (17:42)
[2020-02-15] MEDS: ATORVASTATIN 10 MG TABLET PO SCH (20:53)
[2020-02-15] MEDS ORDERED: INSULIN GLARGINE 100 UNIT/ML SUBCUT SCH (21:00)
[2020-02-15 21:33] LABS: Hematocrit 23.2 VOL% (42.0-52.0); Hemoglobin 6.9 GM/DL (14.0-18.0)
[2020-02-16] MEDS: INSULIN REGULAR 100 UNIT/ML SUBCUT SCH ×4 (00:05→18:21)
[2020-02-16 03:28] LABS: Basophils % 0.2 % (0.0-0.8); Eosinophils # 0.3 10*3/uL (0.0-0.87); Eosinophils % 3.5 % (0.00-10.9); Hematocrit 22.8 VOL% (42.0-52.0); Immature Granulocytes % 1.2 %; Lymphocytes % 12.6 % (21.2-54.2); Mean Corpuscular HGB Conc 30.7 GM/DL (32-36); Mean Corpuscular Volume 71.7 FL (87-102); Mean Platelet Volume 10.8 FL (9.6-12.0); Monocytes % 10.5 % (1.7-12.7); NRBC # 0.03 10*3/uL; Platelet Count 154 T/CUMM (130-400); Red Blood Count 3.18 MC/CUMM (3.8-5.5); Red Cell Distribution Width 16.9 % (9.3-17.3); White Blood Count 8.3 T/CUMM (4-12)
[2020-02-16 03:40] LABS: Calcium 9.4 MG/DL (8.5-10.1); Osmolality,Calculated 330.8 MOS/KG (273-304)
[2020-02-16 03:59] LABS: Prealbumin 6.4 MG/DL (20-40)
[2020-02-16 04:19] LABS: ABG Base Excess -4.5 MMOL/L (-2.5-2.5); ABG HCO3 20.7 MMOL/L (20-26); ABG Oxygen Saturation 97.5 % (95-100); ABG PCO2 33.1 MM HG (35-48); ABG PH 7.388 (7.35-7.45); ABG PO2 99.2 MM HG (80-95); ABG TCO2 18.7 MMOL/L (23-27)
[2020-02-16 04:22] LABS: Hypochromasia 1+
[2020-02-16 04:23] LABS: Microcytosis 1+; Platelet Estimate Normal
[2020-02-16 04:24] LABS: Polychromasia Few
[2020-02-16] MEDS ORDERED: MORPHINE 4 MG/1 ML VIAL IV PRN (08:20)
[2020-02-16] MEDS: GABAPENTIN 300 MG CAPSULE PO SCH ×3 (09:26→17:40)
[2020-02-16] MEDS: PANTOPRAZOLE 40 MG VIAL IV SCH (09:26)
[2020-02-16] MEDS: OXYBUTYNIN 5 MG TABLET PO SCH ×2 (09:26→17:40)
[2020-02-16] MEDS ORDERED: INSULIN GLARGINE 100 UNIT/ML SUBCUT SCH (10:35)
[2020-02-16 14:35] LABS: Hematocrit 23.7 VOL% (42.0-52.0); Hemoglobin 7.2 GM/DL (14.0-18.0)
[2020-02-16] MEDS: MICAFUNGIN 100 MG in SODIUM CHLORIDE 0.9% 100 ML IV SCH (17:46)
[2020-02-16] MEDS: ATORVASTATIN 10 MG TABLET PO SCH (21:18)
[2020-02-17] MEDS: INSULIN REGULAR 100 UNIT/ML SUBCUT SCH ×4 (00:20→18:16)
[2020-02-17 02:58] LABS: Basophils % 0.3 % (0.0-0.8); Eosinophils # 0.5 10*3/uL (0.0-0.87); Hematocrit 24.8 VOL% (42.0-52.0); Hemoglobin 7.2 GM/DL (14.0-18.0); Immature Granulocytes Absolute 0.09 #; Lymphocytes # 1.1 10*3/uL (1.4-4.0); Lymphocytes % 11.8 % (21.2-54.2); Mean Corpuscular Volume 73.8 FL (87-102); Mean Platelet Volume 10.7 FL (9.6-12.0); Monocytes % 9.3 % (1.7-12.7); NRBC # 0.02 10*3/uL; Neutrophils % 72.6 % (38.7-73.9); Platelet Count 187 T/CUMM (130-400); Red Blood Count 3.36 MC/CUMM (3.8-5.5); White Blood Count 9.1 T/CUMM (4-12)
[2020-02-17 03:23] LABS: Calcium 9.3 MG/DL (8.5-10.1); Osmolality,Calculated 328.7 MOS/KG (273-304)
[2020-02-17 04:26] LABS: ABG Base Excess -4.2 MMOL/L (-2.5-2.5); ABG HCO3 20.9 MMOL/L (20-26); ABG Oxygen Saturation 92.4 % (95-100); ABG PCO2 38.3 MM HG (35-48); ABG PH 7.355 (7.35-7.45); ABG PO2 72.3 MM HG (80-95); ABG TCO2 22.1 MMOL/L (23-27); Allen Test Positive; Pt O2 Delivery Device Ventilator
[2020-02-17] MEDS: GABAPENTIN 300 MG CAPSULE PO SCH ×2 (09:25→21:00)
[2020-02-17] MEDS: OXYBUTYNIN 5 MG TABLET PO SCH ×2 (09:25→17:08)
[2020-02-17] MEDS: PANTOPRAZOLE 40 MG VIAL IV SCH (09:26)
[2020-02-17] MEDS: POTASSIUM CHLORIDE 20 MEQ/15 ML UDCUP PER TUBE SCH ×2 (11:26→21:01)
[2020-02-17] MEDS: MICAFUNGIN 100 MG in SODIUM CHLORIDE 0.9% 100 ML IV SCH (17:27)
[2020-02-17] MEDS: INSULIN GLARGINE 100 UNIT/ML SUBCUT SCH (21:01)
[2020-02-17] MEDS: ATORVASTATIN 10 MG TABLET PO SCH (21:01)
[2020-02-18 04:14] LABS: ABG Base Excess -5.2 MMOL/L (-2.5-2.5); ABG HCO3 20.1 MMOL/L (20-26); ABG Oxygen Saturation 97.9 % (95-100); ABG PCO2 36.2 MM HG (35-48); ABG PH 7.349 (7.35-7.45); ABG TCO2 18.9 MMOL/L (23-27); Allen Test Positive; Pt O2 Delivery Device Ventilator
[2020-02-18 04:50] LABS: Basophils % 0.4 % (0.0-0.8); Eosinophils # 0.4 10*3/uL (0.0-0.87); Eosinophils % 4.7 % (0.00-10.9); Hematocrit 22.8 VOL% (42.0-52.0); Hemoglobin 6.5 GM/DL (14.0-18.0); Immature Granulocytes % 0.9 %; Immature Granulocytes Absolute 0.08 #; Lymphocytes # 1.3 10*3/uL (1.4-4.0); Mean Corpuscular HGB Conc 28.5 GM/DL (32-36); Mean Corpuscular Volume 75.5 FL (87-102); Mean Platelet Volume 10.7 FL (9.6-12.0); Monocytes % 7.9 % (1.7-12.7); Neutrophils % 71.1 % (38.7-73.9); Platelet Count 180 T/CUMM (130-400); Red Blood Count 3.02 MC/CUMM (3.8-5.5); Red Cell Distribution Width 17.5 % (9.3-17.3); White Blood Count 8.6 T/CUMM (4-12)
[2020-02-18 05:16] LABS: Calcium 8.9 MG/DL (8.5-10.1); Osmolality,Calculated 330.1 MOS/KG (273-304)
[2020-02-18] MEDS: INSULIN REGULAR 100 UNIT/ML SUBCUT SCH ×4 (05:27→18:04)
[2020-02-18 05:33] LABS: Hypochromasia Slight; Microcytosis 2+; Platelet Estimate Normal
[2020-02-18] MEDS ORDERED: SKIN HEALING OINT (AQUAPHOR) 50 GM TUBE TOP PRN (06:34)
[2020-02-18] MEDS ORDERED: SODIUM CHLORIDE 0.9% 1,000 ML IV PRN ×2 (07:18→08:26)
[2020-02-18] MEDS ORDERED: MIDAZOLAM 10 MG/2 ML VIAL ONE (07:23)
[2020-02-18] MEDS ORDERED: MIDAZOLAM 2 MG/2 ML VIAL IV ONE (07:30)
[2020-02-18] MEDS: OXYBUTYNIN 5 MG TABLET PO SCH ×2 (09:27→17:31)
[2020-02-18] MEDS: GABAPENTIN 300 MG CAPSULE PO SCH ×2 (09:27→21:14)
[2020-02-18] MEDS: POTASSIUM CHLORIDE 20 MEQ/15 ML UDCUP PER TUBE SCH ×2 (09:27→22:06)
[2020-02-18] MEDS: PANTOPRAZOLE 40 MG VIAL IV SCH (09:28)
[2020-02-18] MEDS: DEXTROSE 5% 1,000 ML IV SCH (11:28)
[2020-02-18] MEDS: MICAFUNGIN 100 MG in SODIUM CHLORIDE 0.9% 100 ML IV SCH (17:30)
[2020-02-18] MEDS: ATORVASTATIN 10 MG TABLET PO SCH (21:12)
[2020-02-18] MEDS: INSULIN GLARGINE 100 UNIT/ML SUBCUT SCH (21:58)
[2020-02-19] MEDS: INSULIN REGULAR 100 UNIT/ML SUBCUT SCH ×3 (00:34→13:17)
[2020-02-19 03:26] LABS: ABG Base Excess -5.8 MMOL/L (-2.5-2.5); ABG HCO3 19.7 MMOL/L (20-26); ABG Oxygen Saturation 97.9 % (95-100); ABG PCO2 42.8 MM HG (35-48); ABG PH 7.291 (7.35-7.45); ABG TCO2 18.8 MMOL/L (23-27); Allen Test Positive; Pt O2 Delivery Device Ventilator
[2020-02-19 03:51] LABS: Calcium 8.9 MG/DL (8.5-10.1); Osmolality,Calculated 326.4 MOS/KG (273-304)
[2020-02-19 04:55] LABS: Basophils % 0.3 % (0.0-0.8); Eosinophils # 0.3 10*3/uL (0.0-0.87); Eosinophils % 3.8 % (0.00-10.9); Hematocrit 27.3 VOL% (42.0-52.0); Hemoglobin 8.2 GM/DL (14.0-18.0); Immature Granulocytes % 0.6 %; Immature Granulocytes Absolute 0.05 #; Lymphocytes # 1.1 10*3/uL (1.4-4.0); Lymphocytes % 12.7 % (21.2-54.2); Mean Corpuscular Volume 76.3 FL (87-102); Monocytes % 5.1 % (1.7-12.7); Neutrophils % 77.5 % (38.7-73.9); Platelet Count 176 T/CUMM (130-400); Red Blood Count 3.58 MC/CUMM (3.8-5.5); Red Cell Distribution Width 18.6 % (9.3-17.3); White Blood Count 8.9 T/CUMM (4-12)
[2020-02-19 06:30] VITALS: BP 156/83
[2020-02-19] MEDS: DEXTROSE 5% 1,000 ML IV SCH (06:58)
[2020-02-19] MEDS ORDERED: SODIUM CHLORIDE 0.9% 1,000 ML IV SCH (08:00)
[2020-02-19] MEDS ORDERED: ROCURONIUM 100 MG/10 ML VIAL IV ONE ×2 (09:00→13:29)
[2020-02-19] MEDS: PANTOPRAZOLE 40 MG VIAL IV SCH (09:42)
[2020-02-19] MEDS: POTASSIUM CHLORIDE 20 MEQ/15 ML UDCUP PER TUBE SCH (11:19)
[2020-02-19] MEDS: GABAPENTIN 300 MG CAPSULE PO SCH (11:19)
[2020-02-19] MEDS: OXYBUTYNIN 5 MG TABLET PO SCH (11:19)
[2020-02-19] MEDS ORDERED: propofoL 200 MG/20 ML VIAL IV ONE (13:30)
[2020-02-19] MEDS ORDERED: MIDAZOLAM 2 MG/2 ML VIAL ONE (13:52)
== END 2020-02-19 14:29 | DRG 4 ==
LOC: EDBD → EDUNIT# → N.ED 21:27 → SUATTDRO 23:25 → N.EDINP 23:25 → N.CC 02-04 00:22 → N.5E 02-06 16:33 → N.CC 02-08 20:32 → N.CVR 02-16 17:25
PROVIDERS: ADMIT Internal Medicine; ATTEND Internal Medicine